=== PATIENT | female | born 2000 | race Caucasian/White ===

== ENCOUNTER → 2018-06-15 19:34 | Outpatient (CLI) | payer OTHER, SELFPAY ==
[2018-06-15 19:45] LABS: Basophils % 0.5 % (0.1-2.0); Eosinophils # 0.4 K/mm3 (0.0-0.4); Eosinophils % 4.8 % (0.1-12.0); Hematocrit 37.3 % (37.0-47.0); Hemoglobin 12.2 g/dL (12.2-16.2); Lymphocytes # 2.4 K/mm3 (0.7-4.5); Mean Corpuscular HGB Conc 32.7 g/dL (31.8-35.4); Mean Corpuscular Volume 82.5 fl (81-99); Mean Platelet Volume 8.5 fl (7.4-10.4); Monocytes # 0.5 K/mm3 (0.1-1.0); Monocytes % 6.4 % (1.7-9.3); Neutrophils % 55.2 % (37.0-80.0); Platelet Count 311 K/mm3 (142-424); Red Blood Count 4.52 M/mm3 (4.20-5.40); Red Cell Distribution Width 14.8 % (11.5-17.5); White Blood Count 7.2 K/mm3 (4.5-13.0)
[2018-06-15 20:04] LABS: Alanine Aminotransferase 21 U/L (12-78); Albumin Level 3.8 gm/dL (3.4-5.0); Albumin/Globulin Ratio 1.1 (1.1-1.8); Alkaline Phosphatase 65 U/L (46-116); Aspartate Amino Transferase 13 U/L (15-37); Bilirubin,Total 0.2 mg/dL (0.2-1.0); Blood Urea Nitrogen 8 mg/dL (7-18); Calcium 8.9 mg/dL (8.5-10.1); Carbon Dioxide 26 mmol/L (21.0-32.0); Chloride 103 mmol/L (98-107); Cholesterol 157 mg/dL (140-200); Creatinine,Serum 0.77 mg/dL (0.55-1.02); Estimated Glomerular Filt Rate 96 ml/min (>60); GFR (African American) 116 ML/MIN (>60); Globulin 3.6 gm/dl (1.3-3.2); Glucose 88 mg/dL (74-106); HDL Cholesterol 52 mg/dL (29-89); LDL Cholesterol 91 mg/dL (0-130); Sodium 138 mmol/L (136-145); T4 (Thyroxine) 8.9 ug/dl (5.4-10.6); Thyroid Stimulating Hormone 1.16 uIU/ml (0.516-4.13); Total Protein,Serum 7.4 gm/dL (6.4-8.2); Triglycerides 72 mg/dL (30-200); VLDL Cholesterol 14 mg/dL (0-40)
[2018-06-17 07:16] LABS: Hep A Ab, IgM Negative (Negative); Hepatitis B Core Antibody IgM Negative (Negative); Hepatitis B Surface Antigen Negative (Negative)
[2018-06-17 07:49] LABS: Hepatitis C Antibody <0.1 s/co ratio (0.0-0.9); Vitamin D 25 Hydroxy 17.6 ng/mL (30.0-100.0)
== END ==
PROVIDERS: Visit Provider Emergency Medicine
DX: Z00.00 Encounter for general adult medical examination without abnormal findings (principal); R53.83 Other fatigue
CPT/HCPCS: 80053; 80061; 80074; 82652; 84436; 84443; 85025

== ENCOUNTER → 2022-04-09 16:45 | Outpatient (CLI) | payer OTHER, SELFPAY ==
[2022-04-09 17:58] LABS: Adenovirus,PCR Not Detected (NotDetected); Bordetella Pertussis Not Detected (NotDetected); Chlamydophila Pneumoniae, PCR Not Detected (NotDetected); Coronavirus 19, PCR Not Detected (NotDetected); Coronavirus 229E Not Detected (NotDetected); Coronavirus NL63 Not Detected (NotDetected); Coronavirus OC43 Not Detected (NotDetected); Coronovirus HKU1,PCR Not Detected (NotDetected); Human Metapneumovirus Not Detected (NotDetected); Influenza A, PCR Not Detected (NotDetected); Influenza AH1, 2009 Not Detected (NotDetected); Influenza AH1, PCR Not Detected (NotDetected); Influenza AH3,PCR Not Detected (NotDetected); Influenza B, PCR Not Detected (NotDetected); Mycoplasma Pneumoniae, PCR Not Detected (NotDetected); Parainfluenza 1, PCR Not Detected (NotDetected); Parainfluenza 2, PCR Not Detected (NotDetected); Parainfluenza 3, PCR Not Detected (NotDetected); Parainfluenza 4, PCR Not Detected (NotDetected); Rhinovirus/Enterovirus Not Detected (NotDetected)
[2022-04-09 23:49] LABS: Respiratory Syncytial Virus Detected (NotDetected)
== END ==
PROVIDERS: PCP Nurse Practitioner Family; Visit Provider Nurse Practitioner Family
DX: J02.9 Acute pharyngitis, unspecified (principal); R51.9 Headache, unspecified; R05.9 Cough, unspecified; R19.7 Diarrhea, unspecified; B97.4 Respiratory syncytial virus as the cause of diseases classified elsewhere
CPT/HCPCS: 87581; 87632; 87798; C9803; U0003; U0005

== ENCOUNTER → 2022-04-29 06:23 | Outpatient (CLI) | payer OTHER, SELFPAY ==
[2022-04-29 19:51] LABS: Barbiturates Screen,Urine Negative ng/ml (<200)
[2022-04-29 19:52] LABS: Benzodiazepines Screen,Urine Negative ng/ml (<200); Cannabinoid Screen,Urine Negative ng/ml (<50)
[2022-04-29 19:53] LABS: Cocaine Screen,Urine Negative ng/ml (<300)
[2022-04-29 19:54] LABS: Methadone Screen,Urine Negative ng/ml (<300); Opiate Screen,Urine Negative ng/ml (<300)
[2022-04-29 19:55] LABS: Phencyclidine Screen,Urine Negative ng/ml (<25)
[2022-04-29 20:12] LABS: Amphetamine/Metha Screen,Urine Positive ng/ml (<1000)
== END ==
PROVIDERS: PCP Emergency Medicine; Visit Provider Emergency Medicine
DX: Z79.899 Other long term (current) drug therapy (principal)
CPT/HCPCS: 80305

== ENCOUNTER 2022-06-05 11:03 | Emergency (ER) | payer OTHER, SELFPAY ==
--- NOTE | 2022-06-05 11:33 | EXP.UTC ---
Discharge Plan Disposition Patient Disposition: Home, Self-Care Condition: Good Prescriptions Prescriptions: New ibuprofen [IBU] 800 mg tablet 800 mg PO Q8HP PRN (Reason: Moderate Pain) Qty: 30 0RF ondansetron 4 mg Tablet,Disintegrating 4 mg PO Q8H PRN (Reason: Nausea) Qty: 12 0RF No Action phentermine [Adipex-P] 37.5 mg tablet 37.5 mg PO DAILY Qty: 30 0RF Rx Instructions: must administer 30 minutes before or 1-2 hours after breakfast gabapentin 600 mg tablet 600 mg PO TID Qty: 90 2RF norethindrone-e.estradiol-iron [05/23 ()] 1 mg-20 mcg (21)/75 mg (7) tablet 1 tab PO Referrals Follow up/Referrals: Margarito Kovacs MD [Primary Care Provider] - See instructions Activity Restrictions/Add. Instructions Additional Instructions/Restrictions: Drink plenty of fluids. Take tylenol or ibuprofen for pain or fever. Take the medications as directed. Follow up with your regular doctor. GO TO THE ER FOR ANY WORSENING SYMPTOMS Clinical Impressions Clinical Impression: Dysmenorrhea Stand Alone Forms Stand Alone Forms: Work/School Release Discharge ED Provider: Andrea Quinn [facility] General Stated complaint: stomach pain heavy bleeding and cramps Time Seen by Provider: 06/05/22 11:33 History of Present Illness Provider Complaint: She states that for the past 2 days she has had abdominal cramping and she is having a very heavy period. She recently had her control switched by her medical billing specialist. She denies that she could be . Related Data Home Medications Medication Instructions Recorded Confirmed norethindrone 1 mg-ethinyl 1 tab PO 03/05/22 04/29/22 estradiol 20 mcg (21)-iron 75 mg (7) tablet (05/23 ()) Previous Rx's Medication Instructions Recorded gabapentin 600 mg tablet 600 mg PO TID #90 tabs 04/29/22 phentermine 37.5 mg tablet 37.5 mg PO DAILY #30 tabs 04/29/22 (Adipex-P) ibuprofen 800 mg tablet (IBU) 800 mg PO Q8HP PRN Moderate Pain 06/05/22 #30 tabs ondansetron 4 mg disintegrating 4 mg PO Q8H PRN Nausea #12 tabs 06/05/22 tablet Allergies Allergy/AdvReac Type Severity Reaction Status Date / Time No Known Allergies Allergy Verified 06/05/22 12:20 PFSH PFSH Disclaimer: The information contained in this section may have been updated after the patient was seen, as this information can be updated by other users. Surgical History History of cholecystectomy Social History Smoking Status: Current every day smoker alcohol intake: never substance use type: denies use current occupational status: employed Travel in the last 8 weeks: None ROS Obtained: Yes All systems reviewed & no additional complaints except as documented Constitutional Constitutional: Denies chills and Denies fever(s) Eyes Eyes: Denies eye discharge ENT Ears, Nose, Mouth, and Throat: Denies dizziness, Denies otalgia and Denies sore throat Cardiovascular Cardiovascular: Denies chest pain Respiratory Respiratory: Denies shortness of breath, Denies chest congestion, Denies cough, Denies stridor and Denies wheezing Gastrointestinal Gastrointestingal: Denies nausea or vomiting Genitourinary Female Genitourinary: Reports as per HPI, Denies dysuria, Denies urinary frequency, Denies urinary incontinence, Denies urinary hesitancy, Denies urinary urgency and Denies vaginal discharge Musculoskeletal Musculoskeletal: Reports system reviewed and no additional complaints, except as documented and Denies arthralgias Integumentary/Breasts Skin/Breast: Denies rash Neurologic Neurologic: Denies dizziness and Denies paresthesias Allergic/Immunologic Allergic/Immunologic: Denies wheezing Physical Exam General General appearance: alert and in no apparent distress Head Head exam: atraumatic, normocephalic and normal inspection Eye Eye exam:
[2022-06-05 11:38] LABS: UTC Strep Screen (Rapid) Negative (Negative)
[2022-06-05 11:45] VITALS: RESP 20; TEMP 37.1; O2SAT 97; BMI 32.4
[2022-06-05 13:00] VITALS: BP 126/75; PULSE 90; RESP 20; TEMP 37.1; O2SAT 97
== END 2022-06-05 13:00 | disposition home or self-care (01) ==
PROVIDERS: Emergency Provider Nurse Practitioner Family; PCP Emergency Medicine
DX: N94.6 Dysmenorrhea, unspecified (principal)
CPT/HCPCS: 87880; 99212; 99213; G0463

== ENCOUNTER → 2022-08-13 09:10 | Outpatient (CLI) | payer OTHER, SELFPAY ==
[2022-08-13 13:49] LABS: Alanine Aminotransferase 26 U/L (12-78); Albumin Level 4.3 g/dl (3.5-5.0); Albumin/Globulin Ratio 1.5 (1.1-1.8); Alkaline Phosphatase 73 U/L (38-126); Anion Gap 10.1 mEq/L (5-15); Aspartate Amino Transferase 28 U/L (14-36); Bilirubin,Total 0.3 mg/dl (0.2-1.3); Blood Urea Nitrogen 7 mg/dl (7-17); Calcium 8.9 mg/dl (8.4-10.2); Carbon Dioxide 25 mmol/L (22.0-30.0); Chloride 106 mmol/L (98-107); Chol/HDL Ratio 3.8 (1-3.5); Cholesterol 168 mg/dl (140-200); Estimated Glomerular Filt Rate 123 ml/min (>60); GFR (African American) 149 ML/MIN (>60); Globulin 2.8 g/dL (1.3-3.2); Glucose 81 mg/dl (74-100); HDL Cholesterol 44 mg/dl (40-60); Potassium 4.1 mmoL/L (3.5-5.1); Sodium 137 mmol/L (136-145); Total Protein,Serum 7.1 g/dl (6.3-8.2); Triglycerides 88 mg/dl (30-150); VLDL Cholesterol 18 mg/dL (0-40)
[2022-08-13 13:56] LABS: Basophils # 0.1 K/mm3 (0-0.2); Basophils % 0.9 % (0.1-2.0); Eosinophils # 0.4 K/mm3 (0.0-0.4); Eosinophils % 7.3 % (0.1-12.0); Hematocrit 43.4 % (37.0-47.0); Hemoglobin 13.7 g/dL (12.2-16.2); Lymphocytes # 2.1 K/mm3 (0.7-4.5); Mean Corpuscular HGB Conc 31.6 g/dL (31.8-35.4); Mean Corpuscular Hemoglobin 28.8 pg (27.0-31.2); Mean Corpuscular Volume 91.2 fl (81-99); Mean Platelet Volume 9.7 fl (7.4-10.4); Monocytes # 0.3 K/mm3 (0.1-1.0); Neutrophils # 2.5 K/mm3 (1.8-7.8); Neutrophils % 45.7 % (37.0-80.0); Platelet Count 272 K/mm3 (142-424); Red Blood Count 4.77 M/mm3 (4.20-5.40); Red Cell Distribution Width 12.4 % (11.5-17.5); White Blood Count 5.4 K/mm3 (4.8-10.8)
[2022-08-13 14:01] LABS: Direct LDL Cholesterol 91.81 mg/dL (100-129)
[2022-08-13 14:06] LABS: 25-OH Vitamin D, Total 27.1 ng/mL (30-100)
[2022-08-13 14:08] LABS: Free T4 (Free Thyroxine) 1.26 ng/dl (0.78-2.19)
[2022-08-13 14:20] LABS: Thyroid Stimulating Hormone 0.63 uIU/mL (0.465-4.68)
== END ==
PROVIDERS: PCP Emergency Medicine; Visit Provider Emergency Medicine
DX: R68.89 Other general symptoms and signs (principal); E55.9 Vitamin D deficiency, unspecified; E66.9 Obesity, unspecified; Z68.32 Body mass index [BMI] 32.0-32.9, adult
CPT/HCPCS: 80053; 80061; 82306; 84439; 84443; 85025

== ENCOUNTER 2023-01-02 20:28 | Emergency (ER) | payer OTHER, SELFPAY ==
[2023-01-02] VITALS (7 sets, daily range): BP systolic 108–130; BP diastolic 67–88; PULSE 61–82; RESP 16–18; TEMP 36.8; O2SAT 95–99; BMI 30.3; BMI 30.2
--- NOTE | 2023-01-02 21:11 | HMH.EDGENADL ---
Discharge Plan Disposition Patient Disposition: Home, Self-Care Prescriptions Prescriptions: No Action cholecalciferol (vitamin D3) 1,250 mcg (50,000 unit) capsule 1,250 mcg PO WEEKLY Qty: 14 3RF gabapentin 600 mg tablet 600 mg PO TID Qty: 90 2RF phentermine [Adipex-P] 37.5 mg tablet 37.5 mg PO DAILY Qty: 30 0RF Rx Instructions: must administer 30 minutes before or 1-2 hours after breakfast Referrals Follow up/Referrals: Margarito Kovacs MD [Primary Care Provider] - See instructions Activity Restrictions/Add. Instructions Additional Instructions/Restrictions: Call your family doctor to establish care for this visit to the emergency department and schedule follow-up within 48 hours to ensure improvement. If you have any worsening of your condition or any other concerning signs or symptoms, return to the emergency department or your primary care doctor for further evaluation. Clinical Impressions Clinical Impression: Sinusitis Discharge ED Provider: Sarbjit Raman General Adult HPI General Chief complaint: Dizziness Stated complaint: h/a, disoriented, nausea Time Seen by Provider: 01/02/23 20:32 Mode of Arrival: Family Vehicle Source of Information: Patient Limitations: No Limitations Description of Symptoms (Recalled from ER Triage Doc. by RN): Pt states that she has been around sick kids the she has been dealing with a DOAN stated that pain behind eyes. It hurts at base of head and travels up. She stated that she has been sick to her stomach earlier today, but no longer is. She states she feels a little dizzy History of Present Illness HPI narrative: Is a 22-year-old female presenting with stuffiness. Patient states that she has been having mild headache that starts behind her eyes made worse by bending over. States that she has a fuzzy/abnormal hearing when she bends over and certain positions. Denies fevers or chills, but has had 1 episode of diarrhea today. Numerous sick contacts with viral illnesses. Related Data Previous Rx's Medication Instructions Recorded cholecalciferol (vitamin D3) 1,250 1,250 mcg PO WEEKLY vitamin d 10/22/22 mcg (50,000 unit) capsule defiency #14 caps gabapentin 600 mg tablet 600 mg PO TID #90 tabs 10/22/22 phentermine 37.5 mg tablet 37.5 mg PO DAILY #30 tabs 12/19/22 (Adipex-P) Allergies Allergy/AdvReac Type Severity Reaction Status Date / Time No Known Allergies Allergy Verified 12/19/22 08:47 [facility] Disclaimer: The information contained in this section may have been updated after the patient was seen, as this information can be updated by other users. Surgical History History of cholecystectomy Social History Smoking Status: Current every day smoker alcohol intake: never substance use type: denies use current occupational status: employed Travel in the last 8 weeks: None ROS Obtained: Yes All systems reviewed & no additional complaints except as documented Physical Exam General General appearance: alert, in no apparent distress and other ( ) Head Head exam: atraumatic and normocephalic Eye Eye exam: Present normal appearance, PERRL and EOMI ENT ENT exam: Present mucous membranes moist and TM's normal bilaterally Neck Neck exam: Present normal inspection, full ROM, trachea midline and lymphadenopathy; Absent tenderness or meningismus Respiratory Respiratory exam: Absent respiratory distress, wheezes, stridor, accessory muscle use or prolonged expiratory phase Cardiovascular Cardiovascular exam: Present regular rate and normal rhythm Abdominal Exam Abdominal exam: Present soft; Absent distention, tenderness, guarding, rebound, rigidity or normal bowel sounds Extremities Exam Extremities exam: Absent edema Neurological Exam Neurological exam: Present alert, oriented X3, CN II-XII intact and normal gait; Absent motor
[2023-01-02 21:17] LABS: Coronavirus 19, PCR Not Detected (NotDetected); Influenza A, PCR Not Detected (NotDetected); Influenza B, PCR Not Detected (NotDetected)
== END 2023-01-02 23:48 | disposition home or self-care (01) ==
PROVIDERS: Emergency Provider Emergency Medicine; PCP Emergency Medicine
DX: J01.90 Acute sinusitis, unspecified (principal); R42 Dizziness and giddiness; F17.200 Nicotine dependence, unspecified, uncomplicated
CPT/HCPCS: 87636; 99283

== ENCOUNTER 2023-01-22 14:47 | Emergency (ER) | payer OTHER, SELFPAY ==
[2023-01-22] VITALS (9 sets, daily range): BP systolic 117–135; BP diastolic 73–89; PULSE 81–104; RESP 11–26; TEMP 36.7–36.8; O2SAT 96–99; BMI 30.2
--- NOTE | 2023-01-22 14:46 | ECG_ITS ---
APPROVED REPORT Exam: Resting ECG HR:96 bpm ECG Measurements Heart Rate 96 AXES PA 145 P 74 QRSd 74 QRS 70 QT 323 T 59 QTc 376 Conclusion SINUS RHYTHM NORMAL ECG UNCONFIRMED REPORT Electronically signed by : Herson Layne MD 01/23/2023 09:50:40
--- NOTE | 2023-01-22 15:07 | PC.NURSE ---
Dr. Bond at BS for pt eval
--- NOTE | 2023-01-22 15:14 | XR_ITS ---
FINAL REPORT TECHNIQUE: Chest PA & Lateral CLINICAL HISTORY: cough, wheezing COMPARISON: None FINDINGS: 2 views of the chest were performed. The heart size is normal. The mediastinum is within normal limits. There is no acute cardiopulmonary process. There is scarring or atelectasis in the left perihilar region. There are no pleural effusions. There is no pneumothorax. The bony thorax appears intact. IMPRESSION: No acute cardiopulmonary process. Left parahilar scarring or atelectasis. Reviewed, Interpreted and Dictated by Karl Miller MD Transcribed by Kati Presley Authenticated and [facility]
--- NOTE | 2023-01-22 15:16 | HMH.EDGENADL ---
Discharge Plan Disposition Patient Disposition: Home, Self-Care Prescriptions Prescriptions: No Action gabapentin 600 mg tablet 600 mg PO TID Qty: 90 2RF phentermine [Adipex-P] 37.5 mg tablet 37.5 mg PO DAILY Qty: 30 0RF Rx Instructions: must administer 30 minutes before or 1-2 hours after breakfast cholecalciferol (vitamin D3) 1,250 mcg (50,000 unit) capsule 1,250 mcg PO WEEKLY Qty: 14 3RF Referrals Follow up/Referrals: Margarito Kovacs MD [Primary Care Provider] - See instructions Colt Coleman MD [Staff Physician] - See instructions Activity Restrictions/Add. Instructions Additional Instructions/Restrictions: At this time it was felt you are safe to be discharged home. If new or worsening symptoms such as urinary or bowel incontinence, worsening weakness, do not hesitate to return to the emergency department. Please call and schedule an appointment with Dr. Kovacs tomorrow. Please follow-up with Dr. Coleman tomorrow at 10 AM for evaluation of your chest pain. Clinical Impressions Clinical Impression: Back pain, Lung nodule, Alterations of sensations, Chest pain Discharge ED Provider: Gilberto Bnod General Adult HPI General Chief complaint: Chest Pain Stated complaint: Chest Pain Time Seen by Provider: 01/22/23 15:00 Mode of Arrival: EMS Source of Information: Patient Limitations: No Limitations Description of Symptoms (Recalled from ER Triage Doc. by RN): 23 yo F presents to ED with c/o chest pain and left sciatic pain. pt states that sciatic nerve is having spasms. pt reports chest pain located in middle of chest. pt states she was seen at [facility] yesterday and diagnosed with UTI and bronchitis. History of Present Illness HPI narrative: Patient is a 23-year-old female with past medical history of left-sided sciatica, chronic back pain who presents emergency department for evaluation of multiple complaints. Patient states that she was seen in outside hospital ER yesterday and was diagnosed with bronchitis as well as urinary tract infection was prescribed amoxicillin. Patient also had her spine manipulated by her chiropractor on Thursday. Over the last 24 hours she has developed intermittent severe left-sided sciatica originating in her left lower back radiating posteriorly down her buttock and down the back of her leg wrapping around into her anterior tate. No numbness of the perineum, no incontinence. Denies IV drug use ever. Due to persistent symptoms she presents here for continued evaluation. No trauma. Chest pain is worse with deep inspiration, intermittent, bilateral. Related Data Previous Rx's Medication Instructions Recorded cholecalciferol (vitamin D3) 1,250 1,250 mcg PO WEEKLY vitamin d 10/22/22 mcg (50,000 unit) capsule defiency #14 caps gabapentin 600 mg tablet 600 mg PO TID #90 tabs 01/19/23 phentermine 37.5 mg tablet 37.5 mg PO DAILY #30 tabs 01/19/23 (Adipex-P) Allergies Allergy/AdvReac Type Severity Reaction Status Date / Time No Known Allergies Allergy Verified 01/22/23 14:12 [facility] Disclaimer: The information contained in this section may have been updated after the patient was seen, as this information can be updated by other users. Surgical History History of cholecystectomy Social History Smoking Status: Current every day smoker alcohol intake: never substance use type: denies use current occupational status: employed Travel in the last 8 weeks: None ROS Obtained: Yes Systems reviewed as appropriate & no additional complaints except as documented Physical Exam General General appearance: alert and other (Intermittently appearing in severe pain) Head Head exam: atraumatic and normocephalic Eye Eye exam: Present PERRL and EOMI ENT ENT exam: Present mucous membranes moist Neck Neck exam: Present normal ins
--- NOTE | 2023-01-22 15:29 | PC.NURSE ---
rounded on pt, visitor at BS, call light in reach sherron bethea at BS with pt.
[2023-01-22 15:31] LABS: HCG Qualitative, Serum Negative (Negative)
[2023-01-22 15:34] LABS: Alanine Aminotransferase 34 U/L (12-78); Albumin Level 4.4 g/dl (3.5-5.0); Albumin/Globulin Ratio 1.3 (1.1-1.8); Alkaline Phosphatase 62 U/L (38-126); Anion Gap 15.9 mEq/L (5-15); Aspartate Amino Transferase 35 U/L (14-36); Bilirubin,Total 0.1 mg/dl (0.2-1.3); Blood Urea Nitrogen 6 mg/dl (7-17); Calcium 9.2 mg/dl (8.4-10.2); Carbon Dioxide 21 mmol/L (22.0-30.0); Chloride 109 mmol/L (98-107); Creatinine Clearance Estimated 160 mL/min (50-200); Estimated Glomerular Filt Rate 102 ml/min (>60); GFR (African American) 123 ML/MIN (>60); Globulin 3.4 g/dL (1.3-3.2); Glucose 165 mg/dl (74-100); Potassium 3.9 mmoL/L (3.5-5.1); Sodium 142 mmol/L (136-145); Total Protein,Serum 7.8 g/dl (6.3-8.2)
[2023-01-22 15:38] LABS: Basophils % 0.1 % (0.1-2.0); Eosinophils % 0.1 % (0.1-12.0); Lymphocytes % 7.7 % (10-50); Mean Corpuscular HGB Conc 32.6 g/dL (31.8-35.4); Mean Corpuscular Hemoglobin 28.9 pg (27.0-31.2); Mean Corpuscular Volume 88.7 fl (81-99); Mean Platelet Volume 9.4 fl (7.4-10.4); Monocytes # 0.4 K/mm3 (0.1-1.0); Neutrophils # 11.4 K/mm3 (1.8-7.8); Neutrophils % 89.1 % (37.0-80.0); Platelet Count 283 K/mm3 (142-424); Red Blood Count 4.52 M/mm3 (4.20-5.40); Red Cell Distribution Width 12.6 % (11.5-17.5); White Blood Count 12.8 K/mm3 (4.8-10.8)
[2023-01-22 15:39] LABS: D-Dimer 0.88 ug/mL (0.0-0.5)
[2023-01-22 15:43] LABS: Coronavirus 19, PCR Not Detected (NotDetected); Influenza A, PCR Not Detected (NotDetected); Influenza B, PCR Not Detected (NotDetected)
[2023-01-22 15:43] LABS: MANUAL DIFFERENTIAL MANUAL DIFFERENTIAL (MANUAL DIFF)
[2023-01-22 15:47] LABS: Troponin I 0.03 ng/ml (0.00-0.034)
[2023-01-22 15:54] LABS: Lymphocytes % 13 % (10-50); Monocytes % 1 % (2-9); Neutrophils % 86 % (42-76); Platelet Estimate Normal; RBC Morphology Normal; Total Cells Counted 100
--- NOTE | 2023-01-22 16:25 | CT_ITS ---
PROCEDURE INFORMATION: Exam: CTA Chest With Contrast Exam date and time: 01/22/2023 4:44 PM Age: 23 years old Clinical indication: Pain; Chest pressure; Additional info: mando Braga TECHNIQUE: Imaging protocol: Computed tomographic angiography of the chest with contrast. Exam focused on the arteries. 3D rendering (Not supervised by radiologist): MIP and/or 3D reconstructed images were created by the technologist. Radiation optimization: All CT scans at this facility use at least one of these dose optimization techniques: automated exposure control; mA and/or kV adjustment per patient size (includes targeted exams where dose is matched to clinical indication); or iterative reconstruction. Contrast material: ISOVUE 370; Contrast volume: 70 ml; Contrast route: INTRAVENOUS (IV); REPORTING DATA: Count of CT and Cardiac NM exams in prior 12 months: This patient has received 0 known CTs and 0 known cardiac nuclear medicine studies in the 12 months prior to the current study. COMPARISON: CR XR CHEST 2V 01/22/2023 3:54 PM FINDINGS: Pulmonary arteries: Normal. No pulmonary emboli. Aorta: Unremarkable. No aortic aneurysm. No aortic dissection. Lungs: There is a 0.8 cm left upper lobe nodule (image 57 series 5). For both low risk and high risk patients, consider CT Chest at 3 months, PET/CT, or biopsy. (Reference: Max). Pleural spaces: Unremarkable. No pneumothorax. No pleural effusion. Heart: Unremarkable. No cardiomegaly. No pericardial effusion. Lymph nodes: There are calcified mediastinal lymph nodes likely reflecting prior granulomatous disease. Bones/joints: Unremarkable. No acute fracture. Soft tissues: Unremarkable. IMPRESSION: 1. No evidence for clinically relevant pulmonary arterial filling defect, dense parenchymal consolidation, pleural effusion, or pneumothorax. No acute intrathoracic anomaly. 2. There is a 0.8 cm left upper lobe nodule (image 57 series 5). For both low risk and high risk patients, consider CT Chest at 3 months, PET/CT, or biopsy. (Reference: Max). REFERENCES: Max Ng et al. Guidelines for Management of Incidental Pulmonary Nodules Detected on CT Images: From the Fleischner Society 2017. Radiology. 2017;284(1):228-243.
--- NOTE | 2023-01-22 16:26 | CT_ITS ---
PROCEDURE INFORMATION: Exam: CT Lumbar Spine Without Contrast Exam date and time: 01/22/2023 4:40 PM Age: 23 years old Clinical indication: Low back pain; Additional info: Pain, vaginal anesthesia TECHNIQUE: Imaging protocol: Computed tomography of the lumbar spine without contrast. Radiation optimization: All CT scans at this facility use at least one of these dose optimization techniques: automated exposure control; mA and/or kV adjustment per patient size (includes targeted exams where dose is matched to clinical indication); or iterative reconstruction. REPORTING DATA: Count of CT and Cardiac NM exams in prior 12 months: This patient has received 0 known CTs and 0 known cardiac nuclear medicine studies in the 12 months prior to the current study. COMPARISON: No relevant prior studies available. FINDINGS: Limitations: Evaluation of the spinal canal is somewhat limited by the low soft tissue contrast of CT. If concern for injury persists, MRI would be more sensitive. 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 No acute fracture or dislocation is identified. Gallbladder and bile ducts: The patient is status post cholecystectomy. Soft tissues: Unremarkable. IMPRESSION: No acute osseous injury.
[2023-01-22 16:29] LABS: Microscopic, Urine URINE MICROSCOPIC (MICROSCOPIC)
--- NOTE | 2023-01-22 16:34 | PC.NURSE ---
accompanied ER MD Bond during exam pt to ct at this time @[id number]
[2023-01-22 16:35] LABS: Appearance,Urine CLEAR (Clear); Bilirubin,Urine Negative (Negative); Blood, Urine 1+ (Negative); Color,Urine YELLOW (Yellow); Glucose,Urine (UA) Negative (Negative); Ketones,Urine Negative (Negative); Leukocyte Esterase,Urine Negative (Negative); Nitrate,Urine Negative (Negative); Protein,Urine Negative (Negative); Urobilinogen,Urine 0.2 EU/dl (0.2)
--- NOTE | 2023-01-22 16:36 | PC.NURSE ---
bladder scan showed 54 mL PVR
[2023-01-22 16:50] LABS: RBC,Urine Occasional #/hpf (0-3); WBC,Urine Occasional #/hpf (0-3)
--- NOTE | 2023-01-22 16:56 | PC.NURSE ---
notified lab of new orders on pt.
--- NOTE | 2023-01-22 17:08 | PC.NURSE ---
Spoke with [facility] MD's advised they would call back when the provider is available
--- NOTE | 2023-01-22 17:08 | PC.NURSE ---
medicated per MAR at this time call light in reach visitor at BS pt updated on POC
[2023-01-22 17:27] LABS: Troponin I 0.03 ng/ml (0.00-0.034)
[2023-01-22 17:36] LABS: Erythrocyte Sedimentation Rate 19 mm/hr (0-20)
--- NOTE | 2023-01-22 17:38 | PC.NURSE ---
Spine Doctor... Doctor Cyrus called back to speak with ER Doctor.
--- NOTE | 2023-01-22 17:51 | PC.NURSE ---
Spoke with [facility]. Advised they would give us a call back.
--- NOTE | 2023-01-22 18:03 | PC.NURSE ---
Upon speaking with pt she voiced that she understands need for transfer and will go POV, but refuses to be transported via ambulance. MD and RN made aware.
--- NOTE | 2023-01-22 18:07 | PC.NURSE ---
Dr. Bond speaking with Dr. Loja Neuro surgery at [facility]
--- NOTE | 2023-01-22 18:22 | PC.NURSE ---
DR LANGE SPEAKING WITH DR BANKS
[2023-01-24 09:36] LABS: C-Reactive Protein 13.1 mg/L (0-4)
== END 2023-01-22 18:46 | disposition home or self-care (01) ==
PROVIDERS: Emergency Provider Emergency Medicine; PCP Emergency Medicine
DX: R07.9 Chest pain, unspecified (principal); M54.42 Lumbago with sciatica, left side; F17.200 Nicotine dependence, unspecified, uncomplicated
CPT/HCPCS: 71046; 71275; 72131; 80053; 81001; 84484; 84703; 85007; 85025; 85378; 85651; 86140; 87636; 93005; 96361; 96374; 96375; 99285; J0131; Q9967

== ENCOUNTER → 2023-02-13 13:46 | Outpatient (CLI) | payer OTHER, SELFPAY ==
--- NOTE | 2023-02-13 13:50 | MR_ITS ---
FINAL REPORT CLINICAL HISTORY: Lumbar pain left sided leg pain x 4 months FINDINGS: Multiplanar MR imaging of the lumbar spine was performed without contrast. On the sagittal T2-weighted images, mild disc degeneration is seen at L3-4. The vertebral alignment is normal. There is no evidence of fracture. No bony mass is identified. The conus has an unremarkable appearance. No significant canal stenosis is identified. L1-2: No significant central canal stenosis or neuroforaminal narrowing. L2-3: No significant central canal stenosis or neuroforaminal narrowing. L3-4: No significant central canal stenosis or neuroforaminal narrowing. L4-5: No significant central canal stenosis or neuroforaminal narrowing. L5-S1: No significant central canal stenosis or neuroforaminal narrowing. IMPRESSION: Mild disc degeneration at L3-4. Reviewed, Interpreted and Dictated by Jermaine Verma III, MD Transcribed by Ange Garrison Authenticated and [facility]
== END ==
PROVIDERS: PCP Emergency Medicine; Visit Provider Nurse Practitioner Family
DX: M54.50 Low back pain, unspecified (principal); M79.605 Pain in left leg
CPT/HCPCS: 72148; 76376

== ENCOUNTER → 2023-02-18 23:16 | Outpatient (CLI) | payer OTHER, SELFPAY ==
[2023-02-18 18:52] LABS: Basophils % 0.5 % (0.1-2.0); Eosinophils # 0.4 K/mm3 (0.0-0.4); Eosinophils % 5.4 % (0.1-12.0); Hematocrit 37.9 % (37.0-47.0); Lymphocytes # 2.8 K/mm3 (0.7-4.5); Lymphocytes % 43.1 % (10-50); Mean Corpuscular HGB Conc 34.3 g/dL (31.8-35.4); Mean Corpuscular Hemoglobin 31.1 pg (27.0-31.2); Mean Corpuscular Volume 90.7 fl (81-99); Mean Platelet Volume 9.2 fl (7.4-10.4); Monocytes # 0.3 K/mm3 (0.1-1.0); Monocytes % 4.7 % (1.7-9.3); Neutrophils % 46.3 % (37.0-80.0); Platelet Count 259 K/mm3 (142-424); Red Blood Count 4.17 M/mm3 (4.20-5.40); White Blood Count 6.4 K/mm3 (4.8-10.8)
[2023-02-18 19:05] LABS: Alanine Aminotransferase 21 U/L (12-78); Albumin Level 4.5 g/dl (3.5-5.0); Albumin/Globulin Ratio 1.6 (1.1-1.8); Alkaline Phosphatase 62 U/L (38-126); Anion Gap 14.2 mEq/L (5-15); Aspartate Amino Transferase 30 U/L (14-36); Blood Urea Nitrogen 7 mg/dl (7-17); Calcium 8.9 mg/dl (8.4-10.2); Carbon Dioxide 25 mmol/L (22.0-30.0); Chloride 105 mmol/L (98-107); Estimated Glomerular Filt Rate 102 ml/min (>60); GFR (African American) 123 ML/MIN (>60); Globulin 2.9 g/dL (1.3-3.2); Glucose 76 mg/dl (74-100); Potassium 4.2 mmoL/L (3.5-5.1); Sodium 140 mmol/L (136-145); Total Protein,Serum 7.4 g/dl (6.3-8.2)
[2023-02-18 19:18] LABS: 25-OH Vitamin D, Total 44.2 ng/mL (30-100)
[2023-02-18 19:33] LABS: Thyroid Stimulating Hormone 0.47 uIU/mL (0.465-4.68)
[2023-02-18 19:37] LABS: Bilirubin,Total < 0.1 mg/dl (0.2-1.3)
== END ==
PROVIDERS: PCP Nurse Practitioner Family; Visit Provider Emergency Medicine
DX: E55.9 Vitamin D deficiency, unspecified (principal); Z79.899 Other long term (current) drug therapy
CPT/HCPCS: 80053; 82306; 84443; 85025

== ENCOUNTER → 2023-03-12 23:00 | Outpatient (CLI) | payer OTHER, SELFPAY ==
[2023-03-12 21:12] LABS: Adenovirus,PCR Not Detected (NotDetected); Coronavirus 19, PCR Not Detected (NotDetected); Coronavirus 229E Not Detected (NotDetected); Coronavirus NL63 Not Detected (NotDetected); Coronavirus OC43 Not Detected (NotDetected); Coronovirus HKU1,PCR Not Detected (NotDetected); Human Metapneumovirus Not Detected (NotDetected); Influenza A, PCR Not Detected (NotDetected); Influenza AH1, 2009 Not Detected (NotDetected); Influenza AH1, PCR Not Detected (NotDetected); Influenza AH3,PCR Not Detected (NotDetected); Influenza B, PCR Not Detected (NotDetected); Parainfluenza 1, PCR Not Detected (NotDetected); Parainfluenza 2, PCR Not Detected (NotDetected); Parainfluenza 3, PCR Not Detected (NotDetected); Respiratory Syncytial Virus Not Detected (NotDetected); Rhinovirus/Enterovirus Not Detected (NotDetected)
[2023-03-13 00:45] LABS: Parainfluenza 4, PCR Detected (NotDetected)
== END ==
PROVIDERS: PCP Nurse Practitioner Family; Visit Provider Internal Medicine
DX: R06.02 Shortness of breath (principal); J12.2 Parainfluenza virus pneumonia
CPT/HCPCS: 87581; 87632; 87635; 87798

== ENCOUNTER → 2023-04-09 08:56 | Outpatient (CLI) | payer OTHER, SELFPAY ==
[2023-04-09 18:57] LABS: Adenovirus,PCR Not Detected (NotDetected); Coronavirus 229E Not Detected (NotDetected); Coronavirus NL63 Not Detected (NotDetected); Coronavirus OC43 Not Detected (NotDetected); Coronovirus HKU1,PCR Not Detected (NotDetected); Human Metapneumovirus Not Detected (NotDetected); Influenza A, PCR Not Detected (NotDetected); Influenza AH1, 2009 Not Detected (NotDetected); Influenza AH1, PCR Not Detected (NotDetected); Influenza AH3,PCR Not Detected (NotDetected); Rhinovirus/Enterovirus Not Detected (NotDetected)
[2023-04-11 03:30] LABS: Coronavirus 19, PCR Not Detected (NotDetected); Influenza B, PCR Not Detected (NotDetected); Parainfluenza 1, PCR Not Detected (NotDetected); Parainfluenza 2, PCR Not Detected (NotDetected); Parainfluenza 3, PCR Not Detected (NotDetected); Parainfluenza 4, PCR Not Detected (NotDetected); Respiratory Syncytial Virus Not Detected (NotDetected)
== END ==
PROVIDERS: PCP Nurse Practitioner Family; Visit Provider Nurse Practitioner Family
DX: Z20.822 Contact with and (suspected) exposure to COVID-19 (principal)
CPT/HCPCS: 87581; 87632; 87635; 87798

== ENCOUNTER 2023-09-02 18:00 | Outpatient (CLI) | payer OTHER, SELFPAY ==
[2023-09-02 19:03] LABS: T4 (Thyroxine) 7.5 ug/dl (5.53-11.0)
[2023-09-02 19:16] LABS: Thyroid Stimulating Hormone 0.69 uIU/mL (0.465-4.68)
== END 2023-09-02 23:59 | disposition home or self-care (01) ==
LOC: LAB.DROPOF 09-03 08:38
PROVIDERS: PCP Nurse Practitioner Acute Care; Visit Provider Nurse Practitioner Acute Care
DX: F41.1 Generalized anxiety disorder (principal); F51.05 Insomnia due to other mental disorder; F99 Mental disorder, not otherwise specified
CPT/HCPCS: 84436; 84443

== ENCOUNTER 2024-10-13 16:24 | Outpatient (CLI) | payer OTHER, SELFPAY ==
[2024-10-13 18:06] LABS: Basophils % 0.4 % (0.1-2.0); Eosinophils # 0.2 Kmm3 (0.0-0.4); Hematocrit 37.7 % (37.0-47.0); Hemoglobin 13.1 g/dL (12.2-16.2); Immature Granulocytes # 0.02 10^3uL; Immature Granulocytes % 0.3 %; Lymphocytes # 2.7 K/mm3 (0.7-4.5); Lymphocytes % 36.2 % (10-50); Mean Corpuscular HGB Conc 34.7 g/dL (31.8-35.4); Mean Corpuscular Hemoglobin 29.4 pg (27.0-31.2); Mean Corpuscular Volume 84.7 fl (81-99); Mean Platelet Volume 11.2 fl (7.4-10.4); Monocytes # 0.6 K/mm3 (0.1-1.0); Monocytes % 8.1 % (1.7-9.3); Neutrophils # 3.9 K/mm3 (1.8-7.8); Nucleated Red Blood Cells # 0 10^3/uL; Nucleated Red Blood Cells % 0 %; Platelet Count 278 K/mm3 (142-424); Red Blood Count 4.45 M/mm3 (4.20-5.40); Red Cell Distribution Width 12.4 % (11.5-17.5); Red Cell Distribution Width-SD 37.7 fL; White Blood Count 7.4 K/mm3 (4.8-10.8)
[2024-10-13 19:36] LABS: Albumin Level 4.5 g/dl (3.5-5.0); Chloride 107 mmol/L (98-107); Potassium 4.4 mmoL/L (3.5-5.1); Sodium 137 mmol/L (136-145)
[2024-10-13 19:39] LABS: Alanine Aminotransferase 16 U/L (12-78); Albumin/Globulin Ratio 1.5 (1.1-1.8); Alkaline Phosphatase 59 U/L (38-126); Anion Gap 10.4 mEq/L (5-15); Aspartate Amino Transferase 26 U/L (14-36); Bilirubin,Total 0.3 mg/dl (0.2-1.3); Blood Urea Nitrogen 7 mg/dl (7-17); Calcium 10.2 mg/dl (8.4-10.2); Carbon Dioxide 24 mmol/L (22.0-30.0); Estimated Glomerular Filt Rate 101 ml/min (>60); GFR (African American) 122 ML/MIN (>60); Globulin 3.1 g/dL (1.3-3.2); Glucose 84 mg/dl (74-100); Total Protein,Serum 7.6 g/dl (6.3-8.2)
[2024-10-13 20:11] LABS: Thyroid Stimulating Hormone 1.31 uIU/mL (0.465-4.68)
== END 2024-10-13 23:59 | disposition home or self-care (01) ==
LOC: LAB.DROPOF 10-14 23:49
PROVIDERS: PCP Family Medicine; Visit Provider Family Medicine
DX: E66.811 Obesity, class 1 (principal); R53.83 Other fatigue
CPT/HCPCS: 80053; 84443; 85025

== ENCOUNTER 2025-04-03 21:23 | Emergency (ER) | payer OTHER, SELFPAY ==
[2025-04-03 22:28] VITALS: BP 126/78; PULSE 84; RESP 18; TEMP 37.2; O2SAT 100; BMI 36.2
--- OUTSIDE RECORDS SUMMARY | 2025-04-03 22:34 | XMS_ITS | Clinical Summary ---
[facility] Address [address] [place] [address] Care Team Providers Care Clinical Trial Leader Name Role Phone Provider, No Known Primary Care Provider Unavail able Allergies No known active allergies Medications No known medications Social History Tobacco Use Types Packs/Day Years Used Date Smoking Tobacco: Every Day Cigarettes Abuse Screen Answer Date Recorded Unsafe at Home or Work/School Not on file Feels Threatened by Someone? Not on file 03/2023 Does Anyone Keep You from Co ntacting Others or Doint Things Outside the Home? Not on file 02/11/2023 Physical Sign of Abuse Present Not on file 1 Housing Stability Answer Date Recorded Current Living Arrangements Not on file 02/01 Potentially Unsafe Housing Conditions Not on alex e 02/11/2023 Family and Community Support Answer Kvng e Recorded Help with Day-to-Day Activities Not on file 02/11/2023 Lonely or Isolated Not on file 02/11/2023 Employment Answer Date Recorded Do you want help finding or keeping work or a xiomy b? Not on file 02/11/2023 Disabilities Answer Date Recorded Concentrating, Remembering, or Making Decisions Difficulty Not on file 02/11/2023 Doing Errands Independently Difficulty Not on fi le 02/11/2023 Education Answer Date Recorded Help with school or training? Not on file Preferred Language Not on file 02/11/2023 Comments No Sex and Gender Information Value Date Recorded Sex Assigned at Not on file Legal Sex Female 2:16 PM EDT Gender Identity Not on file Sexual Orientation Not on file Last Filed Vital Signs Vital Sign Reading Time Taken Comments Blood Pressure - - Pulse 96 03/03/2017 2:21 PM EDT Temperature 36.6 C (97.8 F) 03/03/2017 2:21 PM EDT Respiratory Rate 15 03/03/2017 2:21 PM EDT Oxygen Saturation 98% 03/03/2017 2:21 PM EDT Inhaled Oxygen Concentration - - Weight 87.1 kg (192 lb) 03/03/2017 2:21 PM EDT Height 165.1 cm (5' 5 ) 03/03/2017 2:21 PM EDT Body Mass Index 31.95 03/03/2017 2:21 PM EDT Plan of Treatment Health Maintenance Due Date Last Done Comments Annual Gynecologic Pelvic and Breast Exam 1998 Pneumococcal Vaccine 0-49 (1 of 2 - PCV) 2017 TDAP/TD VACCINES (1 - Tdap) 2017 ANNUAL PHYSICAL 03/03/2017 HEPATITIS C SCREENING 03/03/2017 PAP SMEAR 2019 INFLUENZA VACCINE 12/02/2024 Insurance Care Teams Clinical Trial Leader Relationship Specialty Start Date End Date Provider, No Known [facility] [place] [address] PCP - General 03/03/17
[2025-04-03 22:43] LABS: Microscopic, Urine URINE MICROSCOPIC (MICROSCOPIC)
[2025-04-03 22:57] LABS: Bilirubin,Urine Negative (Negative); Glucose,Urine (UA) 1+ (Negative); Ketones,Urine TRACE (Negative); Leukocyte Esterase,Urine 2+ (Negative); PH,Urine 5.0 (5.0-8.5); Protein,Urine 3+ (Negative); Specific Gravity, Urine 1.020 (1.005-1.030); Urobilinogen,Urine >=8.0 EU/dl (0.2)
[2025-04-03 22:59] LABS: Color,Urine ORANGE (Yellow)
[2025-04-03 23:00] LABS: Bacteria,Urine 1+ /lpf; Squamous Epithelial Cell,Urine Occasional #/hpf (0-5)
--- NOTE | 2025-04-03 23:16 | ED_ITS ---
Discharge Plan Disposition Patient Disposition: Home, Self-Care Prescriptions Prescriptions: New sulfamethoxazole-trimethoprim 800-160 mg tablet 1 tab PO BID 7 Days Qty: 14 0RF No Action lorazepam [Ativan] 0.5 mg tablet 0.5 mg PO TID PRN (Reason: anxiety) Qty: 90 0RF gabapentin 600 mg tablet 600 mg PO TID Qty: 90 0RF Referrals Follow up/Referrals: Herson Rome MD [Primary Care Provider, Family Practice] - See instructions Activity Restrictions/Add. Instructions Additional Instructions/Restrictions: Please take antibiotics as prescribed for treatment of urinary tract infection. Please follow-up with your primary care provider. Please return to the emergency department if you develop any new or worsening symptoms or become concerned for your health. Clinical Impressions Clinical Impression: UTI (urinary tract infection) Qualifiers: Urinary tract infection type: acute cystitis Instructions Patient Instructions: DI for Urinary Tract Infection (UTI), DI for Urinary Tract Infection in Children Print Language Print Language: Vietnamese Discharge ED Provider: Gonzalez Salmon Adult HPI General Chief complaint: Urogenital-Female Stated complaint: Poss UTI Time Seen by Provider: 04/03/25 22:34 Mode of Arrival: Ambulatory Source of Information: Patient Description of Symptoms (Recalled from ER Triage Doc. by RN): PT presents to the ED for dysuria, lower abdominal pain that radiates down both legs, and back pain for the last 4 days. PT states she thinks it is a UTI, but [facility] ED saw her tonight and told her she was fine. History of Present Illness HPI narrative: PT presents to the ED for dysuria, lower abdominal pain that radiates down both legs, and back pain for the last 4 days. PT states she thinks it is a UTI, but [facility] ED saw her tonight and told her she was fine. She has history of tubal ligation. She denies fever. Abdominal pain is primarily suprapubic. Related Data Previous Rx's ?Medication ?Instructions ?Recorded gabapentin 600 mg tablet 600 mg PO TID #90 tabs 04/03 lorazepam 0.5 mg tablet (Ativan) 0.5 mg PO TID PRN anx iety #90 tabs 04/03/25 sulfamethoxazole 800 1 tab PO BID 7 days #14 tabs 04/03/25 mg-trimethoprim 160 mg tablet Allergies Allergy/AdvReac Type Severity Reaction Status Date / Time No Known Allergies Allergy Verified 01/30/25 13:39 [facility] Disclaimer: The information contained in this section may have been updated after the patient was seen, as this information can be updated by other users. Medical History Obesity Fatigue Pharyngitis Anxiety Depression Bipolar 1 disorder Restless legs syndrome Generalized anxiety disorder Lung nodule Tobacco use Vitamin D deficiency Surgical History H/O tubal ligation History of cholecystectomy Family History Family/Other No significant family history Mother Substance abuse FHx: mental illness Father Substance abuse FHx: mental illness Social History Smoking Status: Current every day smoker alcohol intake: never substance use type: denies use current occupational status: employed Travel in the last 8 weeks?: None lives independently: Yes marital status: single Have you lived/traveled outside [place] in past 30 days?: No Contact w/someone who lives/traveled outside [place] past 30 days?: No Exposure to someone with infectious disease in past 14 days?: No Do you have a fever (greater than 100.4 F or 38 C)?: No Have you tested positive for COVID-19?: No Exposed to someone with COVID-19 in past 14 days?: No Do you have a sore throat?: No Do you have a cough?: No Do you have any weakness?: No Do you have any diarrhea?: No Are you experiencing any unusual bleeding?: No Do you have any muscle aches/pain?: No Do you have any abdominal pain?: No Are you experiencing loss of taste or smell?: No Other Medical History Have you received the Pneumonia Vaccine: No ROS Obtained: Yes All systems reviewed & no additional complaints except as documented Physical Exam General General appearance: alert and in no apparent distress Head Head exam: atraumatic and normocephalic Eye Eye exam: Present normal appearance, PERRL and EOMI ENT ENT exam: Present normal oropharynx and normal external ear exam Neck Neck exam: Present normal inspection and full ROM Chest Chest inspection: Present normal inspection and symmetric chest wall rise; Absent tenderness Respiratory Respiratory exam: Present normal lung sounds bilaterally; Absent respiratory distress Cardiovascular Cardiovascular exam: Present regular rate and normal rhythm Abdominal Exam Abdominal exam: Present soft; Absent distention, tenderness or guarding Extremities Exam Extremities exam: Present normal inspection; Absent edema or joint swelling Back Exam Back exam: Present normal inspection; Absent tenderness Neurological Exam Neurological exam: Present alert and oriented X3; Absent motor sensory deficit Psychiatric Psychiatric exam: Present normal affect and normal mood Skin Skin exam: Present warm, dry and normal color Lymphatic Lymphatic Findings: no adenopathy Medical Decision Making Medical Records Medical records reviewed: Yes I reviewed the patient's medical records. Screening: Per USPSTF and CDC recommendations, given the prevalence of disease in our region, it is our hospital?s policy to screen for HIV and viral Hepatitis for all patients aged 18 and over and those with ongoing risk factors. Cam Inquiry Pt receiving controlled substance: No Cam was queried for this patient: No Vital Signs: 04/03/25 22:28 Temperature 99.0 F Temperature Source Temporal Artery Scan Pulse Rate [Right] 84 Respiratory Rate 18 Blood Pressure [Right Arm] 126/78 Blood Pressure Mean [Right Arm] 94 Blood Pressure Source [Right Arm] Automatic Cuff Blood Pressure Position [Right Arm] Sitting 02 Sat by Pulse Oximetry 100 Oxygen Delivery Method Room Air Lab Data Lab results reviewed: Yes I reviewed the patient's lab results. Lab Results 04/03/25 21:35: Urine Color [place], Urine Appearance Clear, Urine pH 5.0, Ur Specific [place] 1.020, Urine Protein 3+ A, Urine Glucose (UA) 1+, Urine Ketones Trace, Urine Blood Negative, Urine Nitrate Positive A, Urine Bilirubin Negative, Urine Urobilinogen >=8.0, Ur Leukocyte Esterase 2+ A, Urine RBC None, Urine WBC 5-10, Ur Squamous Epith Cells Occasional, Urine Bacteria 1+ Orders (Tests/Meds): ED MEDICATIONS Discontinued Medications Generic Name Dose Route Start Last Admin Trade Name Freq PRN Reason Stop Dose Admin Trimethoprim/Sulfamethoxazole 1 each 04/03/25 23:15 Sulfa/Trimethoprim 1 Tablet PO 04/03/25 23:16 ONCE ONE ORDERS Category Date Time Status Urinalysis and Microscopic Stat Lab 04/03/25 21:35 Completed Urine Culture Stat Micro 04/03/25 21:35 Received Medical Decision Narrative: 25-year-old female with history patient low abdominal pain and dysuria. History was obtained via interactive discussion with patient. On arrival, patient is [afebrile, hemodynamically stable, satting appropriately, alert, oriented x4, GCS 15], moving all extremities spontaneously. Full physical exam performed and significant for suprapubic abdominal tenderness, no significant flank Differential includes but is not limited to UTI, pyelonephritis, kidney stone. Urinalysis was obtained and independently interpreted by me. Consistent with urinary tract infection given positive nitrates, white blood cells and bacteria. Patient was given dose of Bactrim and discharged with prescription for Bactrim for treatment of urinary tract infection. Return precautions given. Procedures Risk/Benefits of Procedure(s) Were Explained: Yes Critical Care Critical Care Time Critical Care Time: No
[2025-04-03] MEDS: SULFA/TRIMETHOPRIM 1 TABLET 1 EACH PO (23:30)
[2025-04-03 23:32] VITALS: BP 124/84; PULSE 84; RESP 18; TEMP 37; O2SAT 100
--- NOTE | 2025-04-06 07:07 | PC.NURSE ---
FRANCISCA rosa per Dr. Salmon
--- NOTE | 2025-04-07 09:40 | PC.NURSE ---
Urine culture reviewed by Dr. Puente. Patient prescribed Cefdinir 300 mg PO BID x 7 days. Spoke with patient, advised her to stop previous antibiotic and to start new one. Patient verbalized understanding.
== END 2025-04-03 23:33 | disposition home or self-care (01) ==
PROVIDERS: Student in an Organized Health Care Education/Training Program; Emergency Provider Emergency Medicine; PCP Family Medicine
DX: R10.30 Lower abdominal pain, unspecified (principal); N39.0 Urinary tract infection, site not specified; R30.0 Dysuria; B96.20 Unspecified Escherichia coli [E. coli] as the cause of diseases classified elsewhere
CPT/HCPCS: 81001; 87086; 87088; 87186; 99283